=== PATIENT | female | born 1955 | race Caucasian/White ===

== ENCOUNTER 2025-06-07 14:06 | Outpatient (CLI) | payer MEDICARE, OTHER | END 2025-06-07 14:07 | disposition home or self-care (01) | LOC: CSHWCC 14:06 | PROVIDERS: ATTEND Nurse Practitioner Family | DX: I87.333 Chronic venous hypertension (idiopathic) with ulcer and inflammation of bilateral lower extremity (principal); L97.822 Non-pressure chronic ulcer of other part of left lower leg with fat layer exposed; L97.812 Non-pressure chronic ulcer of other part of right lower leg with fat layer exposed; I73.9 Peripheral vascular disease, unspecified | CPT/HCPCS: 99215; G0463 ==